=== PATIENT | male | born 1990 | race Caucasian/White ===

== ENCOUNTER 2022-05-06 15:11 | Emergency (ER) | payer MEDICAID ==
[~2022-05-06] VITALS: Ht 172.7 cm; Wt 60.0 kg
[2022-05-06 15:16] VITALS: BP 148/95
[2022-05-06] MEDS ORDERED: SODIUM CHLORIDE 0.9% 1,000 ML IV ONE (16:15)
[2022-05-06 17:34] LABS: CHLORIDE 109 mEq/L (98-107)
[2022-05-06 17:36] LABS: HEMATOCRIT. 39.1 % (42.0-52.0); HEMOGLOBIN. 13.3 g/dL (14.0-18.0); MEAN CORPUSCULAR HEMOGLOBIN 31.5 pg (28.0-32.0); MEAN CORPUSCULAR VOLUME 92.5 fL (80.0-94.0); MEAN PLATELET VOLUME 7.5 fl (7.4-10.4); PLATELET 271 x1000/uL (130-400); RED BLOOD CELL COUNT 4.23 mill/uL (4.7-6.1); RED CELL DISTRIBUTION WIDTH 13.2 % (11.6-14.6)
[2022-05-06 17:46] LABS: ETHANOL BLOOD < 10 mg/dL
[2022-05-06 18:31] LABS: PLATELET ESTIMATE NORMAL
== END 2022-05-07 05:20 | disposition home or self-care (01) ==
LOC: ER 15:11
DX: T40.601A Poisoning by unspecified narcotics, accidental (unintentional), initial encounter (principal); F11.129 Opioid abuse with intoxication, unspecified; R41.82 Altered mental status, unspecified; R45.1 Restlessness and agitation; R00.0 Tachycardia, unspecified; Y92.018 Other place in single-family (private) house as the place of occurrence of the external cause
CPT/HCPCS: 36415; 70450; 80053; 80307; 80320; 80329; 85025; 93005; 96360; 99285; J7030; G0480